=== PATIENT | female | born 1990 | race Caucasian/White ===

== ENCOUNTER 2017-08-01 11:48 | Outpatient (CLI) | payer BC, OTHER ==
--- NOTE | 2017-08-01 14:16 | CT ---
CT SINUSES: Date: 08/01/17 INDICATION: Chronic sinusitis. FINDINGS: Frontal air cells are well aerated and clear. Ethmoids show minimal mucosal edema. No abnormal opacif ication. The maxillary sinuses and sphenoid air cells are well aerated without significant mucosal ed garcia. Infundibular are patent bilaterally, although slightly elongated. Slight septal deviation to the left. The mastoid air cells are well aerated and clear. IMPRESSION: No significant paranasal sinus mucosal disease identified. POS: [facility]
== END 2017-08-01 11:49 | disposition home or self-care (01) ==
LOC: CT 11:48
PROVIDERS: ATTEND Specialist
DX: J32.9 Chronic sinusitis, unspecified (principal)

== ENCOUNTER 2018-05-04 11:24 | Day surgery (SDC) | payer BC ==
[2018-05-03 11:08] VITALS: BMI 31.6
[~2018-05-04 11:24] MED LIST: Dexamethasone 20 MG/5 ML VIAL ONE; Lidocaine 1% PF 5 ML VIAL ONE; Ondansetron PF 4 MG/2 ML Vial ONE; PROPOFOL 200 MG/20 ML VIAL ONE; Succinylcholine Chloride 20 MG/ML 10 ml SYRINGE FS ONE
[2018-05-04 12:20] LABS: BHCG - Serum Negative (NEGATIVE); Pregs Control Background? CLEAR/WHITE (CLR/WHITE); Pregs Control Bar Appear? YES (CONTROL BAR)
[2018-05-04] MEDS ORDERED: Famotidine/PF 20 mg/2ml Vial ONE (12:41)
[2018-05-04] MEDS ORDERED: Midazolam HCl 2 mg/2 ml Vial ONE ×2 (12:41→12:42)
[2018-05-04] MEDS ORDERED: Ondansetron PF 4 MG/2 ML Vial ONE (12:41)
[2018-05-04] MEDS ORDERED: Scopolamine 1.5 mg/72 hour Patch ONE (12:41)
[2018-05-04] MEDS ORDERED: Fentanyl 100 MCG/2 ML VIAL ONE ×3 (12:42→14:40)
--- NOTE | 2018-05-04 14:02 | OP ---
DATE OF PROCEDURE: 05/04/2018 PREOPERATIVE DIAGNOSES: Chronic tonsillitis, recurrent tonsillitis. POSTOPERATIVE DIAGNOSES: Chronic tonsillitis, recurrent tonsillitis. PROCEDURE PERFORMED: Tonsillectomy over 12 years of age. PROCEDURE IN DETAIL: After consent was obtained, the patient was identified, brought to the operating room, and placed on the operating table in the supine position. General endotracheal anesthesia and intravenous access was obtained and we proceeded with positioning the patient for oropharyngeal surgery. Oropharyngeal exposure was obtained with a Maria A-Saravanan mouth gag after a head drape was placed and secured with a towel clip. The Maria A-Saravanan mouth gag was then suspended from the Diza tray and palatal elevation was achieved with a red rubber catheter. The right tonsil was addressed first. We used a curved Allis to grasp the tonsil and retract it medially as an anterior pillar incision was made with a #12 blade. The retrotonsillar fascial plane was then established and blunt dissection was performed with the suction cautery. Blood vessels were anticipated, identified, and cauterized as they were encountered. Ultimately, dissection was carried to the posterior tonsillar pillar mucosa which was incised hemostatically, as well as the base of tongue connection. The tonsil was then passed off as a specimen and bleeding points within the tonsillar bed were cauterized under direct visualization. We subsequently turned our attention to the contralateral side, where using a similar technique, a near identical procedure was performed. Again, the tonsil was grasped and retracted medially with a curved Allis as an anterior pillar incision was made with a #12 blade. The retrotonsillar fascial plane was established and while the anterior pillar was retracted medially, the hemostatic blunt dissection of the tonsil with a suction cautery was performed with blood vessels anticipated, identified, and cauterized as they were encountered. Again, dissection continued to the base of tongue and posterior tonsillar pillar mucosa which was incised in a hemostatic fashion. The tonsillar beds were then carefully inspected and bleeding points were identified and cauterized with a suction cautery. After this portion of the procedure, hemostasis was completely obtained. The patient's oral cavity was copiously irrigated with iced saline and subsequently suctioned. We then used the red rubber catheter to suction the gastric contents and the patient was subsequently aroused, awakened, and extubated without difficulty and transported to the recovery room in stable condition. There were no complications. Job ID: [id number]
[2018-05-04] MEDS ORDERED: Hydrocodone-Acetamin 15 ML UDCUP ONE (15:14)
== END 2018-05-04 16:02 | disposition home or self-care (01) ==
LOC: SDC 11:24
PROVIDERS: ATTEND Specialist
PROC: 0CTPXZZ Resection of Tonsils, External Approach (ICD-10-PCS; principal; 2018-05-04)
DX: J35.01 Chronic tonsillitis (principal); J03.91 Acute recurrent tonsillitis, unspecified; J35.8 Other chronic diseases of tonsils and adenoids; H92.01 Otalgia, right ear
CPT/HCPCS: 36415; 84703; 85014; 88304; J0131; J1100; J2001; J2250; J2405; J2704; J3010; S0028

== ENCOUNTER 2021-11-07 23:46 | Emergency (ER) | payer BC, SELFPAY ==
[2021-11-08 00:28] LABS: BHCG - Serum Negative (NEGATIVE); Pregs Control Background? CLEAR/WHITE (CLR/WHITE); Pregs Control Bar Appear? YES (CONTROL BAR)
[2021-11-08 00:36] LABS: #Basophils 0.1 thou/uL (0.0-0.2); #Eosinphils 0.1 thou/uL (0.0-0.7); #Lymphocytes 3.6 thou/uL (1.20-3.40); #Monocytes 0.6 thou/uL (0.11-0.59); #Neutrophils 5.2 thou/uL (1.40-6.50); %Basophils 0.8 % (0.0-1.0); %Eosinophils 0.9 % (0.0-10.0); %Lymphocytes 37.8 % (21.0-51.0); %Monocytes 6.2 % (0.0-10.0); %Neutrophils 54.3 % (42.0-75.0); Hemoglobin 13.1 g/dL (12.0-16.0); Mean Corpuscular HGB CONC 34.1 g/dL (32.0-36.0); Mean Corpuscular Hemoglobin 31.2 pg (27.0-31.0); Mean Corpuscular Volume 91.6 fL (78.0-98.0); Mean Platelet Volume 7.6 fL (7.4-10.4); Platelet Count 282 thou/uL (130-400); RBC Distribution Width 11.8 % (11.5-14.5); Red Blood Cell (RBC) Count 4.19 mill/uL (4.20-5.40); White Blood Cell (WBC) Count 9.5 thou/uL (4.8-10.8)
[2021-11-08 00:41] LABS: ALT (SGPT) 18 U/L (8-55); AST (SGOT) 14 U/L (5-34); Acetaminophen Less than 10.0 mcg/mL (10.0-30.0); Alcohol Less than 10 mg/dL (Less than 10); Alkaline Phosphatase 42 U/L (40-110); Anion Gap 14 mmol/L (10-20); BUN (Urea Nitrogen) 14 mg/dL (7.0-18.7); Bilirubin, Total 0.2 mg/dL (0.2-1.2); CK (CPK) 52 U/L (29-168); Calc. Creatinine Clearance 0 mL/min (70-130); Calcium 8.8 mg/dL (7.8-10.44); Carbon Dioxide 20 mmol/L (22-29); Chloride 108 mmol/L (98-107); Estimated GFR 123; Globulin 2.6 g/dL (2.4-3.5); Glucose 94 mg/dL (70-105); Potassium 3.7 mmol/L (3.5-5.1); Protein, Total 6.6 g/dL (6.0-8.3); Salicylate Less than 8.0 mg/dL (15.0-30.0); Sodium 138 mmol/L (136-145)
[2021-11-08 00:49] LABS: Amphetamine Not Detected (NotDetected); Bacteria/HPF None Seen HPF (None Seen); Barbiturates Screen Not Detected (NotDetected); Benzodiazepine Screen Not Detected (NotDetected); Bilirubin Negative (Negative); Blood, Urine 1+ (Negative); Clarity Clear (Clear); Cocaine Metabolite Screen Not Detected (NotDetected); Glucose, Urine (Dipstick) Normal (Negative); Ketone, Urine Negative (Negative); Leukocyte Negative Leu/uL (Negative); Methadone Not Detected (NotDetected); Methamphetamine Not Detected (NotDetected); Nitrite Negative (Negative); Opiate Screen Not Detected (NotDetected); Oxycodone Screen Not Detected (NotDetected); Phencyclidine (PCP) Not Detected (NotDetected); Protein, Urine (Dipstick) Negative (Neg-Trace); Specific Gravity, Urine 1.017 (1.002-1.036); Squamous Epithelial 0-3 HPF (0-3); THC/Cannabinoid Screen Not Detected (NotDetected); Tricyclic Screen Detected (NotDetected); Urobilinogen Normal mg/dL (Less than 2); WBC/HPF 0-3 HPF (0-3); pH, Urine 5.5 (5.0-9.0)
[2021-11-08 03:04] LABS: SARS-CoV-2 NAA Rapid Test Not Detected (NotDetected)
[2021-11-08] MEDS ORDERED: Acetaminophen 325 MG TAB ONE (10:05)
[2021-11-08] MEDS ORDERED: Famotidine/PF 20 mg/2ml Vial ONE (10:10)
[2021-11-08] MEDS ORDERED: Famotidine 20 MG TAB ONE (21:51)
== END 2021-11-09 10:40 ==
LOC: ERS 23:46
DX: T39.392A Poisoning by other nonsteroidal anti-inflammatory drugs [NSAID], intentional self-harm, initial encounter (principal); T43.592A Poisoning by other antipsychotics and neuroleptics, intentional self-harm, initial encounter; T45.0X2A Poisoning by antiallergic and antiemetic drugs, intentional self-harm, initial encounter; F41.9 Anxiety disorder, unspecified; Z20.822 Contact with and (suspected) exposure to COVID-19
CPT/HCPCS: 36415; 80053; 80306; 80307; 81003; 81015; 82550; 84703; 85025; 93005; 96361; 96374; S0028

== ENCOUNTER 2023-04-12 16:47 | Observation (INO) | payer BC ==
[2023-04-12] MEDS ORDERED: Acetaminophen 500 MG TAB ONE (17:20)
[2023-04-12] MEDS ORDERED: Metoclopramide HCl 10 MG (2 mL) VIAL ONE (17:20)
[2023-04-12] MEDS ORDERED: diphenhydrAMINE 50 MG/ML VIAL ONE (17:20)
[2023-04-12 17:49] LABS: #Monocytes 0.6 thou/uL (0.11-0.59); %Basophils 0.2 % (0.0-1.0); %Lymphocytes 21.4 % (21.0-51.0); %Monocytes 4.5 % (0.0-10.0); %Neutrophils 73.6 % (42.0-75.0); Hematocrit 36.7 % (36.0-47.0); Hemoglobin 12.6 g/dL (12.0-16.0); Mean Corpuscular HGB CONC 34.3 g/dL (32.0-36.0); Mean Corpuscular Hemoglobin 30.3 pg (27.0-31.0); Mean Corpuscular Volume 88.2 fl (78.0-98.0); Mean Platelet Volume 9.5 fL (7.4-10.4); Platelet Count 469 10x3/uL (130-400); RBC Distribution Width 13.2 % (11.5-14.5); Red Blood Cell (RBC) Count 4.16 mill/uL (4.20-5.40); White Blood Cell (WBC) Count 12.3 10x3/uL (4.8-10.8)
[2023-04-12 17:57] LABS: BHCG - Serum Negative (NEGATIVE); Pregs Control Background? CLEAR/WHITE (CLR/WHITE); Pregs Control Bar Appear? YES (CONTROL BAR)
[2023-04-12 18:14] LABS: ALT (SGPT) 14 U/L (8-55); AST (SGOT) 13 U/L (5-34); Albumin 4.6 g/dL (3.5-5.0); Alkaline Phosphatase 42 U/L (40-110); Anion Gap 15 mmol/L (10-20); BUN (Urea Nitrogen) 14 mg/dL (7.0-18.7); Bilirubin, Total 0.2 mg/dL (0.2-1.2); Calc. Creatinine Clearance 0 mL/min (70-130); Calcium 9.5 mg/dL (7.8-10.44); Carbon Dioxide 23 mmol/L (22-29); Chloride 106 mmol/L (98-107); Estimated GFR 102; Globulin 2.8 g/dL (2.4-3.5); Glucose 98 mg/dL (70-105); Magnesium 2.2 mg/dL (1.6-2.6); Potassium 3.8 mmol/L (3.5-5.1); Protein, Total 7.4 g/dL (6.0-8.3); Sodium 140 mmol/L (136-145)
[2023-04-12] MEDS ORDERED: Ondansetron ODT 4 MG TAB PO PRN (19:44)
[2023-04-12] MEDS ORDERED: Senokot S 8.6-50 MG TAB PO PRN (19:44)
[2023-04-12] MEDS ORDERED: Acetaminophen 325 MG TAB PO PRN (19:44)
[2023-04-12] MEDS ORDERED: hydrALAZINE 20 MG/ML VIAL SLOW IVP PRN (19:50)
[2023-04-12] MEDS ORDERED: Ketorolac Tromethamine 30 MG (1 mL) VIAL ONE (20:19)
[2023-04-12] MEDS ORDERED: methylPREDNISolone Sod Succ/PF 125 MG/2 ML VIAL ONE (20:19)
[2023-04-13 00:44] VITALS: BMI 36.8
[2023-04-13] MEDS: Cyclobenzaprine 10 MG TAB PO SCH (01:07)
[2023-04-13] MEDS: Acetaminophen 325 MG (10.15 ML) UDCUP PO PRN (01:07)
[2023-04-13] MEDS: Famotidine 20 MG TAB PO SCH (03:47)
[2023-04-13 04:58] LABS: #Monocytes 0.1 thou/uL (0.11-0.59); #Neutrophils 9.6 thou/uL (1.40-6.50); %Basophils 0.2 % (0.0-1.0); %Lymphocytes 11.9 % (21.0-51.0); %Monocytes 1.2 % (0.0-10.0); %Neutrophils 86.1 % (42.0-75.0); Hematocrit 36.7 % (36.0-47.0); Hemoglobin 12.5 g/dL (12.0-16.0); Mean Corpuscular HGB CONC 34.1 g/dL (32.0-36.0); Mean Corpuscular Hemoglobin 30.3 pg (27.0-31.0); Mean Corpuscular Volume 89.1 fl (78.0-98.0); Mean Platelet Volume 9.5 fL (7.4-10.4); Platelet Count 430 10x3/uL (130-400); RBC Distribution Width 13.2 % (11.5-14.5); Red Blood Cell (RBC) Count 4.12 mill/uL (4.20-5.40); White Blood Cell (WBC) Count 11.1 10x3/uL (4.8-10.8)
[2023-04-13 05:45] LABS: ALT (SGPT) 10 U/L (8-55); AST (SGOT) 8 U/L (5-34); Alkaline Phosphatase 40 U/L (40-110); Anion Gap 11 mmol/L (10-20); BUN (Urea Nitrogen) 16 mg/dL (7.0-18.7); Bilirubin, Total 0.2 mg/dL (0.2-1.2); Calc. Creatinine Clearance 189 mL/min (70-130); Calcium 9.4 mg/dL (7.8-10.44); Carbon Dioxide 21 mmol/L (22-29); Chloride 110 mmol/L (98-107); Cholesterol 204 mg/dl (< 200 Desired); Estimated GFR 120; Globulin 2.6 g/dL (2.4-3.5); Glucose 154 mg/dL (70-105); HDL Cholesterol 67 mg/dL (>60 Neg Risk); LDL Cholesterol, Calculated 127 mg/dL; Potassium 3.8 mmol/L (3.5-5.1); Protein, Total 6.8 g/dL (6.0-8.3); Sodium 138 mmol/L (136-145); Triglycerides 50 mg/dL (Less than 150)
[2023-04-13 06:22] LABS: Albumin 4.2 g/dL (3.5-5.0)
[2023-04-13 07:40] LABS: Amphetamine Detected (NotDetected); Barbiturates Screen Not Detected (NotDetected); Benzodiazepine Screen Not Detected (NotDetected); Cocaine Metabolite Screen Not Detected (NotDetected); Methadone Not Detected (NotDetected); Methamphetamine Not Detected (NotDetected); Opiate Screen Not Detected (NotDetected); Oxycodone Screen Not Detected (NotDetected); Phencyclidine (PCP) Not Detected (NotDetected); THC/Cannabinoid Screen Detected (NotDetected); Tricyclic Screen Not Detected (NotDetected)
[2023-04-13] MEDS: Enoxaparin 40 MG (0.4 mL) SYRINGE SC SCH (08:53)
[2023-04-13] MEDS: Aspirin 81 mg Enteric Coated Tablet PO SCH (08:53)
[2023-04-13 12:41] LABS: Hemoglobin A1c 5.2 % (4.0-6.0)
[2023-04-13] MEDS: diphenhydrAMINE 50 MG/ML VIAL IVP SCH (14:29)
[2023-04-13] MEDS: Prochlorperazine Edisylate 10 MG in Sodium Chloride 0.9% 50 ML IVPB SCH (14:36)
[2023-04-14 12:02] VITALS: BP 120/71; TEMP 98.4
== END 2023-04-14 17:12 | disposition home or self-care (01) ==
LOC: ERS 16:47 → 2SE 19:47
PROVIDERS: ADMIT Internal Medicine; ATTEND Internal Medicine
DX: G43.909 Migraine, unspecified, not intractable, without status migrainosus (principal); I65.29 Occlusion and stenosis of unspecified carotid artery; D72.829 Elevated white blood cell count, unspecified; E78.5 Hyperlipidemia, unspecified; F19.90 Other psychoactive substance use, unspecified, uncomplicated; Z79.899 Other long term (current) drug therapy; Z87.891 Personal history of nicotine dependence; Z90.89 Acquired absence of other organs
CPT/HCPCS: 36415; 70450; 70544; 70551; 80053; 80061; 80306; 83036; 83735; 84145; 84703; 85025; 93880; 95711; 95819; 96372; 96375; 96376; G0378; J0780; J1200; J1650; J1885; J2765; J2930

== ENCOUNTER 2023-05-11 14:55 | Outpatient (CLI) | payer BC | END 2023-05-11 14:56 | disposition home or self-care (01) | LOC: BICULT 14:55 | PROVIDERS: ATTEND Psychiatry & Neurology Neurology | DX: R93.89 Abnormal findings on diagnostic imaging of other specified body structures (principal); E04.1 Nontoxic single thyroid nodule | CPT/HCPCS: 76536 ==

== ENCOUNTER 2023-11-18 12:12 | Outpatient (CLI) | payer BC | END 2023-11-18 12:13 | disposition home or self-care (01) | LOC: SCSRAD 12:12 | PROVIDERS: ATTEND Nurse Practitioner Family | DX: M25.511 Pain in right shoulder (principal) ==

== ENCOUNTER 2024-04-12 09:08 | Outpatient (CLI) | payer BC | END 2024-04-12 09:09 | disposition home or self-care (01) | LOC: BICULT 09:08 | PROVIDERS: ATTEND Family Medicine | DX: R10.12 Left upper quadrant pain (principal); B27.99 Infectious mononucleosis, unspecified with other complication | CPT/HCPCS: 76700 ==